=== PATIENT | female | born 1970 | race Caucasian/White ===

== ENCOUNTER 2017-05-29 16:17 | Inpatient (IN) | payer OTHER ==
[2017-05-29 16:56] VITALS: BMI 19.3
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
[2017-05-29] MEDS ORDERED: guaiFENesin/D-METHORPHAN HB 10 ML UNIT-DOSE CUPS PO PRN (18:59)
[2017-05-29] MEDS ORDERED: chlordiazePOXIDE HCL 25 MG CAPSULE PO ONE (18:59)
[2017-05-29] MEDS ORDERED: MAGNESIUM HYDROX 2400MG/30ML ORAL SUSPENSION 30 ML CUP PO PRN (18:59)
[2017-05-29] MEDS ORDERED: ACETAMINOPHEN 325 MG TABLET (FP) PO PRN (18:59)
[2017-05-29] MEDS ORDERED: MENTHOL/PHENOL 1 EACH UD MM PRN (18:59)
[2017-05-29] MEDS ORDERED: P-EPHED 60MG/TRIPROLIDI 2.5MG TABLET PO PRN (18:59)
[2017-05-29] MEDS ORDERED: LOPERAMIDE HCL 2 MG CAPSULE PO PRN (18:59)
[2017-05-29] MEDS ORDERED: MAGNESIUM CITRATE 300 ML BOTTLE PO PRN (18:59)
[2017-05-29] MEDS ORDERED: MAG HYDROX/AL HYDROX/SIMETH 30 ML UNIT-DOSE CUP PO PRN (18:59)
[2017-05-29] MEDS: NICOTINE 21 MG/24 HOURS TOPICAL PATCH TD SCH (21:12)
[2017-05-29] MEDS: THIAMINE HCL 100 MG TABLET (FP) PO SCH (21:51)
[2017-05-29] MEDS: NICOTINE POLACRILEX 2 MG GUM BC PRN (21:55)
[2017-05-29] MEDS: chlordiazePOXIDE HCL 25 MG CAPSULE PO SCH (23:31)
[2017-05-29] MEDS: chlordiazePOXIDE HCL 25 MG CAPSULE PO PRN (23:51)
[2017-05-30 00:29] LABS: URINE APPEARANCE CLEAR; URINE BILIRUBIN NEGATIVE (NEGATIVE); URINE BLOOD NEGATIVE (NEGATIVE); URINE COLOR YELLOW; URINE GLUCOSE (UA) NEGATIVE (NEGATIVE); URINE KETONE NEGATIVE (NEGATIVE); URINE NITRITE NEGATIVE (NEGATIVE); URINE PROTEIN NEGATIVE (NEGATIVE)
[2017-05-30 00:30] LABS: URINE LEUK ESTERASE 2+ (NEGATIVE)
[2017-05-30 00:37] LABS: EPI CELLS RARE /HPF (FEW); URINE BACTERIA RARE /hpf (NONE SEEN); URINE HYALINE CAST 12 /lpf; URINE MUCUS RARE
[2017-05-30] MEDS: chlordiazePOXIDE HCL 25 MG CAPSULE PO SCH ×4 (06:00→22:13)
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
--- NOTE | 2017-05-30 08:03 | EKG ---
Test Reason : Blood Pressure : / mmHG Vent. Rate : 075 BPM Atrial Rate : 075 BPM P-R Int : 156 ms QRS Dur : 106 ms QT Int : 464 ms P-R-T Axes : 078 054 046 degrees QTc Int : 518 ms NORMAL SINUS RHYTHM BIATRIAL ENLARGEMENT INCOMPLETE RIGHT BUNDLE BRANCH BLOCK NONSPECIFIC ST ABNORMALITY PROLONGED QT ABNORMAL ECG WHEN COMPARED WITH ECG OF 13-FEB-2008 14:48, NO SIGNIFICANT CHANGE WAS FOUND Confirmed by KRISTINA MCGRATH MD ([id number]) on 05/30/2017 8:03:47 AM Referred By: Confirmed By:KRISTINA MCGRATH MD
[2017-05-30 10:05] LABS: HEMATOCRIT 39.5 % (32.4-45.2); HEMOGLOBIN 12.9 GM/dL (10.7-15.3); MCH 32.3 pg (25.7-33.7); MCHC 32.8 g/dl (32.0-36.0); MEAN CELL VOLUME 98.6 fl (80-96); MEAN PLT VOLUME 7.9 fl (7.5-11.1); PLATELET COUNT 176 K/MM3 (134-434); RDW 16.9 % (11.6-15.6); WHITE BLOOD COUNT 5.7 K/mm3 (4.0-10.0)
[2017-05-30] MEDS: PRENATAL VITAMINS W/ FOLIC ACID TABLET (FP) PO SCH (10:19)
[2017-05-30] MEDS: NICOTINE 21 MG/24 HOURS TOPICAL PATCH TD SCH (10:19)
[2017-05-30] MEDS: IBUPROFEN 400 MG TABLET (FP) PO PRN (10:21)
[2017-05-30 10:51] LABS: ALBUMIN 3.4 g/dl (3.4-5.0); ALK PHOS 113 U/L (45-117); ANION GAP 10 (8-16); BLOOD UREA NITROGEN 16 mg/dL (7-18); CALCIUM 8.3 mg/dL (8.5-10.1); CHLORIDE 105 mmol/L (98-107); CO2 29 mmol/L (21-32); CREATININE 0.6 mg/dL (0.55-1.02); GLUCOSE,RANDOM 114 mg/dL (74-106); SGOT/AST 50 U/L (15-37); SGPT/ALT 65 U/L (12-78); SODIUM 144 mmol/L (136-145); TOT PROT 5.9 g/dl (6.4-8.2)
[2017-05-30 11:00] LABS: POTASSIUM 2.4 mmol/L (3.5-5.1)
[2017-05-30] MEDS ORDERED: POTASSIUM CHLORIDE ORAL LIQUID 20 MEQ/15 ML PO ONE (11:06)
--- NOTE | 2017-05-30 11:17 | PN ---
S CIWA - CIWA Score Nausea/Vomitin Muscle Tremors: 3 Anxiety: 3 Agitation: 2 Paroxysmal Sweats: 1-Minimal Palms Moist Orientation: 0-Oriented Tacttile Disturbances: 1-Very Mild Itch/Numbness Auditory Disturbances: 1-Very Mild Visual Disturbances: 0-None Headache: 2-Mild CIWA-Ar Total Score: 16 BHS Progress Note (SOAP) Subjective: ALERT,IRRITABLE,ANXIOUS,INTERRUPTED SLEEP,TREMOR, Objective: 05/30/17 11:14 Vital Signs Temperature 96.9 F L 05/30/17 10:00 Pulse Rate 93 H 05/30/17 10:00 Respiratory Rate 18 05/30/17 10:00 Blood Pressure 148/90 05/30/17 10:00 O2 Sat by Pulse Oximetry (%) EKG NSR,PROLONG QT NO CHEST PAIN,NO SOB,NO DIZZINESS Laboratory Last Values WBC 5.7 K/mm3 (4.0-10.0) 05/30/17 07:00 RBC 4.00 M/mm3 (3.60-5.2) 05/30/17 07:00 Hgb 12.9 GM/dL (10.7-15.3) 05/30/17 07:00 Hct 39.5 % (32.4-45.2) 05/30/17 07:00 MCV 98.6 fl (80-96) H 05/30/17 07:00 MCH 32.3 pg (25.7-33.7) 05/30/17 07:00 MCHC 32.8 g/dl (32.0-36.0) 05/30/17 07:00 RDW 16.9 % (11.6-15.6) H 05/30/17 07:00 Plt Count 176 K/MM3 (134-434) 05/30/17 07:00 MPV 7.9 fl (7.5-11.1) 05/30/17 07:00 Sodium 144 mmol/L (136-145) 05/30/17 07:00 Potassium 2.4 mmol/L (3.5-5.1) L* 05/30/17 07:00 Chloride 105 mmol/L (98-107) 05/30/17 07:00 Carbon Dioxide 29 mmol/L (21-32) 05/30/17 07:00 Anion Gap 10 (8-16) 05/30/17 07:00 BUN 16 mg/dL (7-18) 05/30/17 07:00 Creatinine 0.6 mg/dL (0.55-1.02) 05/30/17 07:00 Creat Clearance w eGFR > 60 (>60) 05/30/17 07:00 Random Glucose 114 mg/dL (74-106) H 05/30/17 07:00 Calcium 8.3 mg/dL (8.5-10.1) L 05/30/17 07:00 Total Bilirubin 1.0 mg/dL (0.2-1.0) 05/30/17 07:00 AST 50 U/L (15-37) H 05/30/17 07:00 ALT 65 U/L (12-78) 05/30/17 07:00 Alkaline Phosphatase 113 U/L (45-117) 05/30/17 07:00 Total Protein 5.9 g/dl (6.4-8.2) L 05/30/17 07:00 Albumin 3.4 g/dl (3.4-5.0) 05/30/17 07:00 Urine Color Yellow 05/29/17 20:00 Urine Appearance Clear 05/29/17 20:00 Urine pH 6.0 (5.0-8.0) 05/29/17 20:00 Ur Specific [place] 1.016 (1.001-1.035) 05/29/17 20:00 Urine Protein Negative (NEGATIVE) 05/29/17 20:00 Urine Glucose (UA) Negative (NEGATIVE) 05/29/17 20:00 Urine Ketones Negative (NEGATIVE) 05/29/17 20:00 Urine Blood Negative (NEGATIVE) 05/29/17 20:00 Urine Nitrite Negative (NEGATIVE) 05/29/17 20:00 Urine Bilirubin Negative (NEGATIVE) 05/29/17 20:00 Urine Urobilinogen 2.0 mg/dL (0.2-1.0) H 05/29/17 20:00 Ur Leukocyte Esterase 2+ (NEGATIVE) H 05/29/17 20:00 Urine WBC (Auto) 16 /hpf (3-5) 05/29/17 20:00 Urine RBC (Auto) 1 /hpf (0-3) 05/29/17 20:00 Ur Epithelial Cells Rare /HPF (FEW) 05/29/17 20:00 Urine Bacteria Rare /hpf (NONE SEEN) 05/29/17 20:00 Hyaline Casts 12 /lpf 05/29/17 20:00 Urine Mucus Rare 05/29/17 20:00 Assessment: 05/30/17 11:16 WITHDRAWAL SYMPTOM Plan: CONTINUE DETOX,K IS 2.4.GLUCOSE 114,KCL 40 MEQ PO NOW THEN BID,REPEAT CMP IN AM, BGM MONITORING
[2017-05-30] MEDS: BACITRACIN 0.9 GM PACKET TP SCH ×2 (11:45→22:13)
[2017-05-30] MEDS: chlordiazePOXIDE HCL 25 MG CAPSULE PO PRN ×2 (13:27→19:56)
[2017-05-30] MEDS: THIAMINE HCL 100 MG TABLET (FP) PO SCH (22:13)
[2017-05-30] MEDS: POTASSIUM CHLORIDE ORAL LIQUID 20 MEQ/15 ML PO SCH (22:14)
[2017-05-30] MEDS: ALBUTEROL SO4 18 GM HFA INHALER IH PRN (22:17)
[2017-05-31] MEDS: IBUPROFEN 400 MG TABLET (FP) PO PRN ×2 (00:44→17:07)
[2017-05-31] MEDS: chlordiazePOXIDE HCL 25 MG CAPSULE PO PRN (00:46)
[2017-05-31] MEDS: chlordiazePOXIDE HCL 25 MG CAPSULE PO SCH ×3 (05:58→17:08)
[2017-05-31] MEDS: ALBUTEROL SO4 18 GM HFA INHALER IH PRN ×3 (05:59→22:23)
[2017-05-31] MEDS: hydrOXYzine PAMOATE 50 MG CAPSULE (FP) PO PRN ×2 (09:09→23:11)
[2017-05-31] MEDS: NICOTINE 21 MG/24 HOURS TOPICAL PATCH TD SCH (10:19)
[2017-05-31] MEDS: PRENATAL VITAMINS W/ FOLIC ACID TABLET (FP) PO SCH (10:19)
[2017-05-31] MEDS: POTASSIUM CHLORIDE ORAL LIQUID 20 MEQ/15 ML PO SCH ×2 (10:19→22:18)
[2017-05-31] MEDS: BACITRACIN 0.9 GM PACKET TP SCH ×2 (10:20→22:18)
[2017-05-31 10:37] LABS: CALCIUM 8.4 mg/dL (8.5-10.1); CHLORIDE 108 mmol/L (98-107); POTASSIUM 3.3 mmol/L (3.5-5.1); SODIUM 143 mmol/L (136-145)
[2017-05-31 10:43] LABS: ALBUMIN 3.7 g/dl (3.4-5.0); ALK PHOS 112 U/L (45-117); ANION GAP 6 (8-16); BLOOD UREA NITROGEN 12 mg/dL (7-18); CO2 29 mmol/L (21-32); CREATININE 0.6 mg/dL (0.55-1.02); GLUCOSE,RANDOM 141 mg/dL (74-106); SGOT/AST 40 U/L (15-37); SGPT/ALT 54 U/L (12-78); TOT PROT 6.3 g/dl (6.4-8.2)
--- NOTE | 2017-05-31 10:52 | PN ---
BHS CIWA - CIWA Score Nausea/Vomitin Muscle Tremors: 3 Anxiety: 3 Agitation: 2 Paroxysmal Sweats: 1-Minimal Palms Moist Orientation: 0-Oriented Tacttile Disturbances: 1-Very Mild Itch/Numbness Auditory Disturbances: 1-Very Mild Visual Disturbances: 0-None Headache: 2-Mild CIWA-Ar Total Score: 16 BHS Progress Note (SOAP) Subjective: ALERT,IRRITABLE,ANXIOUS,INTERRUPTED SLEEP,PAIN IN THE BODY Objective: 05/31/17 10:51 Vital Signs Temperature 96.8 F L 05/31/17 06:00 Pulse Rate 90 05/31/17 06:00 Respiratory Rate 18 05/31/17 06:00 Blood Pressure 129/80 05/31/17 06:00 O2 Sat by Pulse Oximetry (%) Assessment: 05/31/17 10:53 WITHDRAWAL SYMPTOM Plan: CONTINUE DETOX ,ON KCL 40 MEQ PO BID,REPEAT CMP PENDING,BGM [place]
--- NOTE | 2017-05-31 11:06 | EKG ---
Test Reason : Blood Pressure : / mmHG Vent. Rate : 075 BPM Atrial Rate : 075 BPM P-R Int : 154 ms QRS Dur : 108 ms QT Int : 464 ms P-R-T Axes : 046 066 018 degrees QTc Int : 518 ms NORMAL SINUS RHYTHM INCOMPLETE RIGHT BUNDLE BRANCH BLOCK NONSPECIFIC ST AND T WAVE ABNORMALITY PROLONGED QT ABNORMAL ECG WHEN COMPARED WITH ECG OF 30-MAY-2017 06:40, NO SIGNIFICANT CHANGE WAS FOUND Confirmed by MOUSTAPHA RAMIREZ, ELISEO ([id number]) on 05/31/2017 11:06:20 AM Referred By: Confirmed By:ELISEO GERARD MD
[2017-05-31] MEDS: NICOTINE POLACRILEX 2 MG GUM BC PRN (14:33)
[2017-05-31] MEDS ORDERED: COLLOIDAL OATMEAL 1 BAR EACH TP PRN (17:20)
[2017-05-31] MEDS: chlordiazePOXIDE 5 MG CAPSULE PO SCH (22:18)
[2017-05-31] MEDS: THIAMINE HCL 100 MG TABLET (FP) PO SCH (22:18)
[2017-06-01] MEDS: hydrOXYzine PAMOATE 50 MG CAPSULE (FP) PO PRN (04:02)
[2017-06-01] MEDS: chlordiazePOXIDE 5 MG CAPSULE PO SCH (05:42)
[2017-06-01] MEDS: IBUPROFEN 400 MG TABLET (FP) PO PRN (05:42)
--- NOTE | 2017-06-01 08:45 | DS ---
[facility] Detox Discharge Summary Admission Date: 05/29/17 Discharge Date: 06/01/17 - History Present History: Alcohol Dependence Additional Comments: PATIENT DID NOT WANT TO COMPLETE TREATMENT,SIGNED RELEASE AMA,PATIENT WILL SEE HER PMD FOR MEDICAL PROBLEM,HYPOKALEMIA,HYPERGLYCEMIA,AND FOR BREAST PROBLEM Pertinent Past History: WEIGHT LOSS INSOMNIA HISTORY OF BIOPSY OF RIGHT BREAST - Physical Exam Results Vital Signs: Vital Signs Temperature 98.1 F 06/01/17 06:27 Pulse Rate 62 06/01/17 06:27 Respiratory Rate 17 06/01/17 06:27 Blood Pressure 140/73 06/01/17 06:27 O2 Sat by Pulse Oximetry (%) Pertinent Admission Physical Exam Findings: WITHDRAWAL SYMPTOM AND FINDING - Treatment Patient has Accepted a Rehab Referral to: DECLINED - Medication Discharge Medications: Ambulatory Orders Alprazolam [Xanax] 0.5 mg PO TID 05/29/17 Oxycodone HCl/Acetaminophen [Percocet 10-325 mg Tablet] 1 each PO DAILY - Diagnosis (1) Alcohol dependence with uncomplicated withdrawal Current Visit: Yes Status: Acute (2) Hypokalemia Current Visit: Yes Status: Acute (3) Anxious mood Current Visit: Yes Status: Acute (4) Drug-induced mood disorder Current Visit: Yes Status: Acute (5) Nicotine dependence Current Visit: Yes Status: Chronic (6) History of right breast biopsy Current Visit: Yes Status: Acute (7) Hyperglycemia Current Visit: Yes Status: Acute - AMA Did Patient Leave Against Medical Advice: Yes
[2017-06-01 09:55] VITALS: BP 148/84; PULSE 77; TEMP 96.7
[2017-06-01] MEDS ORDERED: POTASSIUM CHLORIDE TABS 20 MEQ TABLET.ER (FP) PO SCH (10:00)
[2017-06-01] MEDS ORDERED: chlordiazePOXIDE HCL 10 MG CAPSULE PO SCH (23:00)
== END 2017-06-01 09:25 | disposition left against medical advice (07) | DRG 770 ==
LOC: YASAS 16:17 → Y6N 19:27
PROVIDERS: ADMIT Internal Medicine; ATTEND Internal Medicine
PROC: HZ2ZZZZ Detoxification Services for Substance Abuse Treatment (ICD-10-PCS; principal; 2017-05-29)
DX: F11.20 Opioid dependence, uncomplicated (principal); F10.230 Alcohol dependence with withdrawal, uncomplicated; F14.20 Cocaine dependence, uncomplicated; F17.210 Nicotine dependence, cigarettes, uncomplicated; F19.24 Other psychoactive substance dependence with psychoactive substance-induced mood disorder; F41.9 Anxiety disorder, unspecified; F32.9 Major depressive disorder, single episode, unspecified; G47.00 Insomnia, unspecified; E87.6 Hypokalemia; R63.4 Abnormal weight loss; Z68.1 Body mass index [BMI] 19.9 or less, adult; F43.20 Adjustment disorder, unspecified
CPT/HCPCS: 36415; 80053; 81003; 81015; 85027; 86593; 86803; 87389; 93005; 93010

== ENCOUNTER 2022-08-30 12:53 | Inpatient (IN) | payer OTHER ==
[2022-08-30] MEDS ORDERED: guaiFENesin 600 MG TABLET.ER (FP) PO PRN (14:54)
[2022-08-30] MEDS ORDERED: DICYCLOMINE HCL 10 MG CAPSULE PO PRN (14:54)
[2022-08-30] MEDS ORDERED: BENZONATATE 200 MG CAPSULE PO PRN (14:54)
[2022-08-30] MEDS ORDERED: MAGNESIUM HYDROX 2400MG/30ML ORAL SUSPENSION 30 ML CUP PO PRN (14:54)
[2022-08-30] MEDS ORDERED: IBUPROFEN 400 MG TABLET (FP) PO PRN (14:54)
[2022-08-30] MEDS ORDERED: BISMUTH SUBSALICYLATE 262 MG/15 ML BTL PO PRN (14:54)
[2022-08-30] MEDS ORDERED: MAG HYDROX/AL HYDROX/SIMETH 30 ML UNIT-DOSE CUP PO PRN (14:54)
[2022-08-30] MEDS ORDERED: LOPERAMIDE HCL 2 MG CAPSULE PO PRN (14:54)
[2022-08-30] MEDS ORDERED: BENZOCAINE/MENTHOL (CHLORASEPTIC ) LOZENGE MM PRN (14:54)
[2022-08-30] MEDS ORDERED: NICOTINE 10 MG CARTRIDGE (INHALER) IH PRN (14:54)
[2022-08-30] MEDS ORDERED: LORazepam 2 MG TABLET PO ONE (14:54)
[2022-08-30] MEDS ORDERED: POLYETHYLENE GLYCOL (HEALTHYLAX) 3350 17 GM PACKET PO PRN (14:54)
[2022-08-30] MEDS ORDERED: ONDANSETRON *ODT* 4 MG TABLET SL PRN (14:54)
[2022-08-30] MEDS: NICOTINE 21 MG/24 HOURS TOPICAL PATCH TD SCH (15:59)
[2022-08-30] MEDS ORDERED: NICOTINE 21 MG/24 HOURS TOPICAL PATCH ONE (16:01)
[2022-08-30] MEDS ORDERED: LORazepam 2 MG TABLET ONE (16:01)
[2022-08-30] MEDS: METHOCARBAMOL 500 MG TABLET PO PRN ×2 (16:39→23:30)
[2022-08-30] MEDS ORDERED: METHOCARBAMOL 500 MG TABLET ONE (16:41)
[2022-08-30] MEDS: ALBUTEROL SO4 HFA INHALER IH PRN ×2 (17:38→20:41)
[2022-08-30] MEDS: LORazepam 2 MG TABLET PO SCH ×2 (18:03→22:16)
[2022-08-30] MEDS: ACETAMINOPHEN 325 MG TABLET (FP) PO PRN (18:04)
[2022-08-30] MEDS ORDERED: hydrOXYzine PAMOATE 25 MG CAPSULE (FP) PO PRN (20:13)
[2022-08-30] MEDS ORDERED: traZODone HCL 50 MG TABLET (FP) PO ONE (22:00)
[2022-08-30] MEDS: MELATONIN 5 MG TABLETS PO SCH (22:16)
[2022-08-30] MEDS: THIAMINE HCL 100 MG TABLET (FP) PO SCH (22:16)
[2022-08-30] MEDS: IBUPROFEN 600 MG TABLET (FP) PO PRN (22:20)
[2022-08-31] MEDS: LORazepam 2 MG TABLET PO SCH ×4 (05:27→22:09)
[2022-08-31] MEDS: METHOCARBAMOL 500 MG TABLET PO PRN ×3 (05:28→19:11)
[2022-08-31] MEDS: NICOTINE POLACRILEX 2 MG GUM BUC PRN ×2 (05:28→23:12)
[2022-08-31] MEDS: ALBUTEROL SO4 HFA INHALER IH PRN ×4 (05:53→22:09)
[2022-08-31] MEDS: PRENATAL VITAMINS W/ FOLIC ACID TABLET (FP) PO SCH (10:12)
[2022-08-31] MEDS: NICOTINE 21 MG/24 HOURS TOPICAL PATCH TD SCH (10:13)
[2022-08-31] MEDS: IBUPROFEN 600 MG TABLET (FP) PO PRN ×2 (10:47→17:08)
[2022-08-31 11:33] LABS: POTASSIUM 3.1 mmol/L (3.5-5.1)
[2022-08-31 11:34] LABS: HEMATOCRIT 37.9 % (32.4-45.2); HEMOGLOBIN 13.4 GM/dL (10.7-15.3); MCH 32.6 pg (25.7-33.7); MCHC 35.2 g/dl (32.0-36.0); MEAN CELL VOLUME 92.5 fl (80-96); MEAN PLT VOLUME 8.8 fl (7.5-11.1); PLATELET COUNT 213 10^3/uL (134-434); RDW 15.2 % (11.6-15.6); WHITE BLOOD COUNT 8.3 K/mm3 (4.0-10.0)
[2022-08-31 11:37] LABS: ALBUMIN 4.2 g/dl (3.4-5.0); BLOOD UREA NITROGEN 18.8 mg/dL (7-18); CALCIUM 9.2 mg/dL (8.5-10.1)
[2022-08-31 11:40] LABS: CREATININE 0.7 mg/dL (0.55-1.3)
[2022-08-31 11:42] LABS: BILIRUBIN,TOTAL 1.6 mg/dL (0.2-1); TOT PROT 7.6 g/dl (6.4-8.2)
[2022-08-31] MEDS: LORazepam 1 MG TABLET PO PRN (12:36)
[2022-08-31] MEDS ORDERED: GABAPENTIN 100 MG CAPSULE PO ONE (17:49)
[2022-08-31] MEDS: traZODone HCL 50 MG TABLET (FP) PO SCH (22:09)
[2022-08-31] MEDS: THIAMINE HCL 100 MG TABLET (FP) PO SCH (22:09)
[2022-08-31] MEDS: GABAPENTIN 100 MG CAPSULE PO SCH (22:09)
[2022-08-31] MEDS: POTASSIUM CHLORIDE ORAL LIQUID 20 MEQ/15 ML PO SCH (22:09)
[2022-08-31] MEDS: MELATONIN 5 MG TABLETS PO SCH (22:09)
[2022-08-31] MEDS: ACETAMINOPHEN 325 MG TABLET (FP) PO PRN (22:12)
[2022-09-01] MEDS: LORazepam 1 MG TABLET PO SCH ×4 (06:02→22:05)
[2022-09-01] MEDS: GABAPENTIN 100 MG CAPSULE PO SCH ×3 (06:03→22:05)
[2022-09-01] MEDS: METHOCARBAMOL 500 MG TABLET PO PRN ×3 (06:05→22:07)
[2022-09-01] MEDS: ALBUTEROL SO4 HFA INHALER IH PRN ×3 (06:05→19:29)
[2022-09-01] MEDS: POTASSIUM CHLORIDE ORAL LIQUID 20 MEQ/15 ML PO SCH ×2 (10:09→22:45)
[2022-09-01] MEDS: PRENATAL VITAMINS W/ FOLIC ACID TABLET (FP) PO SCH (10:09)
[2022-09-01] MEDS: NICOTINE 21 MG/24 HOURS TOPICAL PATCH TD SCH (10:09)
[2022-09-01] MEDS: LORazepam 1 MG TABLET PO PRN (14:08)
[2022-09-01] MEDS: IBUPROFEN 600 MG TABLET (FP) PO PRN (17:08)
[2022-09-01] MEDS: MELATONIN 5 MG TABLETS PO SCH (22:03)
[2022-09-01] MEDS: traZODone HCL 50 MG TABLET (FP) PO SCH (22:04)
[2022-09-01] MEDS: THIAMINE HCL 100 MG TABLET (FP) PO SCH (22:04)
[2022-09-02] MEDS ORDERED: LORazepam 0.5 MG TABLET PO PRN
[2022-09-02] MEDS: ALBUTEROL SO4 HFA INHALER IH PRN (04:36)
[2022-09-02] MEDS: GABAPENTIN 100 MG CAPSULE PO SCH (05:25)
[2022-09-02] MEDS: LORazepam 0.5 MG TABLET PO SCH ×2 (05:25→10:49)
[2022-09-02] MEDS: METHOCARBAMOL 500 MG TABLET PO PRN (05:28)
[2022-09-02 06:35] VITALS: BP 141/82; PULSE 84; RESP 18; TEMP 97.7
[2022-09-02] MEDS: POTASSIUM CHLORIDE ORAL LIQUID 20 MEQ/15 ML PO SCH (10:32)
[2022-09-02] MEDS: NICOTINE 21 MG/24 HOURS TOPICAL PATCH TD SCH (10:32)
[2022-09-02] MEDS: PRENATAL VITAMINS W/ FOLIC ACID TABLET (FP) PO SCH (10:32)
[2022-09-02] MEDS ORDERED: PNEUMOC 20-VAL CONJ-DIP CRM/PF 0.5 ML SYRINGE IM ONE (12:00)
[2022-09-03] MEDS ORDERED: LORazepam 0.5 MG TABLET PO ONE (05:00)
== END 2022-09-02 09:09 | disposition home or self-care (01) | DRG 775 ==
LOC: YASAS 12:53 → Y3N 16:11
PROVIDERS: ADMIT Allergy & Immunology; ATTEND Surgery
PROC: HZ2ZZZZ Detoxification Services for Substance Abuse Treatment (ICD-10-PCS; principal; 2022-08-30)
DX: F10.230 Alcohol dependence with withdrawal, uncomplicated (principal); F17.210 Nicotine dependence, cigarettes, uncomplicated; F31.9 Bipolar disorder, unspecified; F41.9 Anxiety disorder, unspecified; E87.6 Hypokalemia; G47.00 Insomnia, unspecified; R94.31 Abnormal electrocardiogram [ECG] [EKG]; R00.1 Bradycardia, unspecified; I51.7 Cardiomegaly
CPT/HCPCS: 36415; 80053; 81025; 85027; 86780; 93005; 93010; C9803-CS; U0003; U0005